=== PATIENT | female | born 1960 | race Caucasian/White ===

== ENCOUNTER 2016-08-01 22:26 | Emergency (ER) | payer OTHER ==
[~2016-08-01] VITALS: Ht 167.6 cm; Wt 90.0 kg
[2016-08-02] MEDS ORDERED: AUGMENTIN875 MG PO (00:13)
[2016-08-02 00:24] VITALS: BP 127/77
== END 2016-08-02 00:26 | disposition home or self-care (01) ==
LOC: EME 22:26 → EXP 22:26
PROC: 3E0234Z Introduction of Serum, Toxoid and Vaccine into Muscle, Percutaneous Approach (ICD-10-PCS; principal; 2016-08-01)
DX: S61.451A Open bite of right hand, initial encounter (principal); W54.0XXA Bitten by dog, initial encounter; Z23 Encounter for immunization; F17.200 Nicotine dependence, unspecified, uncomplicated
CPT/HCPCS: 99281; 99283

== ENCOUNTER → 2017-09-03 | Outpatient (CLI) | payer OTHER ==
[~2017-09-03] VITALS: Ht 165.1 cm; Wt 85.7 kg
[~2017-09-03] MED LIST: AUGMENTIN875 MG PO; IBUPROFEN200 M1 PO; LO-DOSE ASPIRIN81 M2 PO; MULTI VITAMIN1 EACH PO; SYMBICORT60 INHALAT IH; VENTOLIN HFA18 GM IH; VERAPAMIL HCL240 MG PO; VITAMIN E400 UNIT PO; ZOLOFT100 MG PO
== END | disposition home or self-care (01) ==
LOC: AMB 08:09
PROC: 0DBM8ZX Excision of Descending Colon, Via Natural or Artificial Opening Endoscopic, Diagnostic (ICD-10-PCS; principal; 2017-09-03)
DX: Z12.11 Encounter for screening for malignant neoplasm of colon (principal); D12.4 Benign neoplasm of descending colon; K57.30 Diverticulosis of large intestine without perforation or abscess without bleeding; K62.89 Other specified diseases of anus and rectum; Z86.010 Personal history of colon polyps; J45.909 Unspecified asthma, uncomplicated; F17.200 Nicotine dependence, unspecified, uncomplicated; F41.1 Generalized anxiety disorder; I10 Essential (primary) hypertension; R73.01 Impaired fasting glucose; E66.9 Obesity, unspecified; Z68.31 Body mass index [BMI] 31.0-31.9, adult; Z79.82 Long term (current) use of aspirin; Z80.51 Family history of malignant neoplasm of kidney
CPT/HCPCS: 88305; 93005